=== PATIENT | female | born 1965 | race Hispanic/Latino ===

== ENCOUNTER 2018-11-20 08:30 | Emergency (ER) | payer MEDICAID, MEDICARE ==
[2018-11-20 08:37] VITALS: BMI 29.6
[2018-11-20 08:38] VITALS: O2SAT 96
[2018-11-20] MEDS ORDERED: Oxycodone/Acetaminophen 5/325 mg Tab PO STA (08:53)
--- NOTE | 2018-11-20 09:53 | ED PDOC ---
Arrival/HPI - General Chief Complaint: Finger,Hand,&Wrist Time Seen by Provider: 11/20/18 08:42 Historian: Patient - History of Present Illness Narrative History of Present Illness (Text): 11/20/18 08:42 Genesis Cedeno is a 53 year old female, with a past medical history of seizures and herniated disc, who presents to the emergency department complaining of right hand injury s/p mechanical fall last night. Patient informs tripping over a child's toy and hitting her right hand. She appreciates numbness below the 4th digit but is able to feel pain. Patient states hand was put in a splint last night and pain worsened upon waking up this morning. She appreciates swelling. Patient denies taking any medications for pain. Patient takes dilantin, phenobarbital, and topiramate. Patient denies head injury, loss of consciousnes s, headache, dizziness, fevers, chills, cough, nausea, vomiting, diarrhea, visual changes, neck pain, back pain, dysuria, hematuria, or any other complaint. Time/Duration: 24 hours Symptom Onset: Sudden Symptom Course: Worsening Activities at Onset: Light Context: Tripped Past Medical History - Provider Review Nursing Documentation Reviewed: Yes - Infectious Disease Hx of Infectious Diseases: None - Reproductive Menopause: Yes - Cardiac Hx Cardiac Disorders: No - Pulmonary Hx Respiratory Disorders: No - Neurological Hx Neurological Disorder: No Hx Seizures: Yes (Last seizure a while a ago according to pt) - HEENT Hx HEENT Disorder: No - Renal Hx Renal Disorder: No - Endocrine/Metabolic Hx Endocrine Disorders: No - Hematological/Oncological Hx Blood Disorders: No - Integumentary Hx Dermatological Disorder: No - Musculoskeletal/Rheumatological Hx Musculoskeletal Disorders: Yes Other/Comment: Pt with slip disc - Gastrointestinal Hx Gastrointestinal Disorders: No - Genitourinary/Gynecological Hx Genitourinary Disorders: No - Psychiatric Hx Psychophysiologic Disorder: No Hx Substance Use: No - Anesthesia Hx Anesthesia: No Family/Social History - Physician Review Nursing Documentation Reviewed: Yes Family/Social History: Unknown Family HX Smoking Status: Light Smoker < 10 Cigarettes Daily Hx Alcohol Use: Yes Hx Substance Use: No Allergies/Home Meds Allergies/Adverse Reactions: Allergies No Known Allergies Allergy (Verified 04/26/16 22:29) Home Medications: Home Meds Medication Instructions Recorded Confirmed Phenobarbital 100 mg PO TID 11/20/18 11/20/18 Phenytoin, Extended [Dilantin] 60 mg PO TID 11/20/18 11/20/18 Topiramate [Topamax] 100 mg PO Q12 11/20/18 11/20/18 Review of Systems - Physician Review All systems were reviewed & negative as marked: Yes - Review of Systems Constitutional: absent: Fevers, Other (chills) Eyes: absent: Vision Changes Respiratory: absent: Cough Gastrointestinal: absent: Diarrhea, Nausea, Vomiting Genitourinary Female: absent: Dysuria, Hematuria Musculoskeletal: Arthralgias (right hand injury; decreased sensation to 4th digit but feels pain), Joint Swelling. absent: Back Pain, Neck Pain, Other (head injury) Neurological: absent: Headache, Other (loss of consciousness) Physical Exam Vital Signs Reviewed: Yes Vital Signs Temp Pulse Resp BP Pulse Ox 11/20/18 08:38 98.0 F 80 18 127/66 96 11/20/18 08:37 98 F 78 18 127/66 96 Temperature: Afebrile Blood Pressure: Normal Pulse: Regular Respiratory Rate: Normal Appearance: Positive for: Well-Appearing, Non-Toxic, Comfortable Pain Distress: None Mental Status: Positive for: Alert and Oriented X 3 - Systems Exam Head: Present: Atraumatic, Normocephalic Pupils: Present: PERRL Extroacular Muscles: Present: EOMI Conjunctiva: Present: Normal Mouth: Present: Moist Mucous Membranes Neck: Present: Normal Range of Motion Respiratory/Chest: Present: Clear to Auscultation, Good Air Exchange. No: Respiratory Distress, Accessory Muscle Use, Wheezes, Rales, Rhonchi Cardiovascular: Present: Regular Rate and Rhythm, Normal S1, S2. No: Murmurs, Rub, Gallop Abdomen: Present: Normal Bowel Sounds. No: Tenderness, Distention, Peritoneal Signs, Rebound, Guarding Back: Present: Normal Inspection Upper Extremity: Present: Swelling (right 4th digit), Deformity (right 4th digit), Other (ecchymosis overlaying 4th metacarpal and on palmar side). No: Cyanosis, Edema Lower Extremity: Present: Normal Inspection. No: Edema Neurological: Present: GCS=15, CN II-XII Intact, Speech Normal Skin: Present: Warm, Dry, Normal Color. No: Rashes Psychiatric: Present: Alert, Oriented x 3, Normal Insight, Normal Concentration Medical Decision Making ED Course and Treatment: 11/20/18 08:42 Impression: Genesis Cedeno is a 53 year old female, with a past medical history of seizures and herniated disc, who presents to the emergency department complaining of right hand injury s/p mechanical fall last night. Plan: -- Percocet -- 4th Digit Right Hand X-Ray -- Reassess and disposition Prior Visits: Notes and results from previous visits were reviewed. Progress Notes: Patient given 5mg percocet PO for pain. XR done, 3rd-5th proximal phalanx fractures noted. Results discussed with patient. Case discussed with Dr. Del Angel, cotton ginner for hand. Patient can follow up in his office today immediately upon discharge from the emergency department. Requesting that patient bring copy of XR with her. Plan discussed with patient, she is amenable to outpatient followup. Requesting dressing on her hand so as to not accidentally knock it on anything, as this causes severe pain. Patient notes that she takes 10mg percocet at home, and currently still has meds left. This will suffice for her pain. Aluminum splint and wrap placed to affected R fingers. Patient given outpatient followup information. Stable for discharge at this time. - RAD Interpretation Narrative RAD Interpretations (Text): IMPRESSION: Displaced fractures are seen through the base of the 3rd 4th and 5th proximal phalanges. Radiology Orders: 11/20/18 08:52 HAND RIGHT 4TH DIGIT (FINGER) [RAD] Stat - Medication Orders Current Medication Orders: Discontinued Medications Oxycodone/Acetaminophen (Percocet 5/325 Mg Tab) 1 tab PO STAT STA Stop: 11/20/18 08:54 Last Admin: 11/20/18 09:29 Dose: 1 tab MAR Pain Assessment Document 11/20/18 09:29 UJP (Rec: 11/20/18 09:29 UJP [id number]) Pain Reassessment Is this a pain reassessment? No Sleep Is patient sleeping during reassessment? No Presence of Pain Presence of Pain Yes Pain Scale Used Protocol: PSCALES Pain Scale Used Numeric Location Left, Right or Bilateral Right Pain Location Body Site Hand - Scribe Statement The provider has reviewed the documentation as recorded by the Scribminerva Domínguez All medical record entries made by the Scribe were at my direction and personally dictated by me. I have reviewed the chart and agree that the record accurately reflects my personal performance of the history, physical exam, medical decision making, and the department course for this patient. I have also personally directed, reviewed, and agree with the discharge instructions and disposition. Disposition/Present on Arrival - Present on Arrival Any Indicators Present on Arrival: No History of DVT/PE: No History of Uncontrolled Diabetes: No Urinary Catheter: No History of Decub. Ulcer: No History Surgical Site Infection Following: None - Disposition Have Diagnosis and Disposition been Completed?: Yes Diagnosis: Phalanx, multiple sites fracture of hand Disposition: HOME/ ROUTINE Disposition Time: 10:30 Condition: STABLE Discharge Instructions (ExitCare): Finger Fracture (DC) Additional Instructions: GENESIS CEDENO, thank you for letting us take care of you today. Your provider was Aleena Hand MD and you were treated for RT HAND INJURY. The emergency medical care you received today was directed at your acute symptoms. If you were prescribed any medication, please fill it and take as directed. It may take several days for your symptoms to resolve. Return to the Emergency Department if your symptoms worsen, do not improve, or if you have any other problems. Please contact your doctor or call one of the physicians/clinics you have been referred to that are listed on the Patient Visit Information form that is included in your discharge packet. Bring any paperwork you were given at discharge with you along with any medications you are taking to your follow up visit. Our treatment cannot replace ongoing medical care by a primary care provider outside of the emergency department. Thank you for allowing the [facility] team to be part of your care today. If you had an X-Ray or CT scan: A Radiologist will review the ED reading if any change in treatment is needed we will contact you. If you had a blood, urine, or wound culture: It will take several days for the results, if any change in treatment is needed we will contact you. If you had an STI test: It will take 48 hours for the results. Please call after 1 week if you have not heard back. Referrals: Steve Butt MD [Primary Care Provider] - Follow up with primary Chris Del Angel MD [Staff Provider] - Follow up with primary Forms: [employer] (Romansh)
[2018-11-20] MEDS ORDERED: Morphine 4 mg/ml ISec IM STA (10:23)
[2018-11-20 10:28] VITALS: PULSE 70; RESP 16; TEMP 98.1
[2018-11-20 10:38] VITALS: BP 127/63
--- NOTE | 2018-11-20 11:21 | RAD ---
PROCEDURE: Right Hand Radiographs. HISTORY: hand/finger injury COMPARISON: None. TECHNIQUE: Four views obtained. FINDINGS: BONES: Displaced fractures are seen through the base of the 3rd 4th and 5th proximal phalanges JOINTS: Normal. No osteoarthritic changes. SOFT TISSUES: Normal. OTHER FINDINGS: None. IMPRESSION: Displaced fractures are seen through the base of the 3rd 4th and 5th proximal phalanges
== END 2018-11-20 11:08 | disposition home or self-care (01) ==
LOC: ED 08:30
DX: S62.612A Displaced fracture of proximal phalanx of right middle finger, initial encounter for closed fracture (principal); S62.616A Displaced fracture of proximal phalanx of right little finger, initial encounter for closed fracture; S62.614A Displaced fracture of proximal phalanx of right ring finger, initial encounter for closed fracture; W01.0XXA Fall on same level from slipping, tripping and stumbling without subsequent striking against object, initial encounter; F17.210 Nicotine dependence, cigarettes, uncomplicated
CPT/HCPCS: 29130; 73140; 81025; 96372; 99283; J2270